=== PATIENT | female | born 1940 | race Hispanic/Latino ===

== ENCOUNTER 2019-06-01 11:00 | Observation (INO) | payer OTHER ==
[~2019-06-01] VITALS: Ht 147.3 cm; Wt 66.7 kg
[~2019-06-01 11:00] MED LIST: ACET325T51 PO; ANAS1TAB7 PO; CALC-991 PO; DESO15CR29 TP; HYDR-3830 PO; LEVO5TAB13 PO; MULT-950 PO; NYST15CR2 TP; SIMV-43 PO
[2019-06-01 13:33] LABS: BASOPHILS % (AUTO) 0.5 % (0.0-5.0); HEMATOCRIT 39.5 % (36-48); LYMPHOCYTES % (AUTO) 26.1 % (21.0-51.0); MEAN CORPUSCULAR HEMOGLOBIN 30.5 pg (27.0-33.0); MEAN CORPUSCULAR HGB CONC 33.1 g/dL (32.0-36.0); MEAN CORPUSCULAR VOLUME 92.2 fL (79-99); NEUTROPHILS % (AUTO) 65.4 % (40.0-77.0); NUCLEATED RED BLOOD CELLS 0.1 % (0.0-0.19); PLATELET COUNT (AUTO) 129 K/uL (130-400); RED BLOOD CELL COUNT(AUTO) 4.28 MIL/uL (4.00-5.50); RED CELL DISTRIBUTION WIDTH 14.2 % (11.0-15.5); WHITE BLOOD COUNT (AUTO) 5.8 K/uL (4.8-10.8)
[2019-06-01 13:46] VITALS: BP 129/60
[2019-06-01 13:48] LABS: CREATININE 0.9 mg/dL (0.5-1.5); POTASSIUM 4.4 mmol/L (3.5-5.1)
--- NOTE | 2019-06-05 11:26 | NUR ---
LABS INFORMED DR. CAMPOS MUÑOZ ASST OF ABNORMAL SODIUM. ORDERS RECEIVED TO REDRAW IN AM.
[2019-06-06] VITALS (25 sets, daily range): BP systolic 116–201; BP diastolic 56–89
[2019-06-06] MEDS: CLINDAMYCIN 900 MG/D5% WATER 50 ML IV SCH ×5 (06:00→19:56)
[2019-06-06] MEDS ORDERED: SODIUM CHLORIDE 0.9% 1000ML 1,000 ML IV ONE (06:52)
[2019-06-06] MEDS ORDERED: SUCCINYLCHOLINE 200MG/10ML SYR ONE (06:53)
[2019-06-06] MEDS ORDERED: LIDOCAINE PF 2% 5ML ABBOJECT ONE (06:53)
[2019-06-06] MEDS ORDERED: PROPOFOL 10 MG/ML 20ML VIAL IV ONE (06:53)
[2019-06-06] MEDS ORDERED: ROCURONIUM 10MG/1ML SYR 10 MG/ML ML ONE (06:53)
[2019-06-06] MEDS ORDERED: FENTANYL CITRATE PF 50 MCG/1 ML 2ML VIAL ONE (06:54)
[2019-06-06] MEDS ORDERED: BACITRACIN 50,000 UNIT VIAL ONE (06:58)
[2019-06-06] MEDS ORDERED: DURAMORPH PF1 MG/ML 10ML AMP IV ONE (06:58)
[2019-06-06 07:04] LABS: CREATININE 0.8 mg/dL (0.5-1.5); POTASSIUM 3.5 mmol/L (3.5-5.1)
[2019-06-06] MEDS ORDERED: MIDAZOLAM HCL 1 MG/ML 2ML VIAL ONE (07:12)
[2019-06-06] MEDS: BUPIVACAINE/EPI/PF 0.25% 30ML VIAL IJ SCH ×2 (07:15→07:57)
[2019-06-06] MEDS ORDERED: RAMI2.5C16 PO (08:06)
[2019-06-06] MEDS ORDERED: GABA-531 PO (08:07)
[2019-06-06] MEDS ORDERED: NAPR-1141 PO (08:09)
[2019-06-06] MEDS ORDERED: CHLO15MO3 MM (08:17)
[2019-06-06] MEDS ORDERED: KETOROLAC TROMETHAMINE 30MG/ML ONE (09:08)
[2019-06-06] MEDS ORDERED: GLYCOPYRROLATE 1 MG/5 ML SYRINGE ONE (09:08)
[2019-06-06] MEDS ORDERED: NEOSTIGMINE 5MG/5ML SYR IV ONE (09:08)
[2019-06-06] MEDS ORDERED: ONDANSETRON HCL 4 MG/2 ML VIAL ONE (09:08)
[2019-06-06] MEDS ORDERED: DEXAMETHASONE SOD PHOSPHATE 10MG/ML 1ML VIAL ONE (09:09)
[2019-06-06] MEDS: LACTATED RINGERS 1000ML 1,000 ML IV SCH ×2 (09:28→19:59)
[2019-06-06] MEDS: DEXAMETHASONE SOD PHOSPHATE 4 MG/ML 1ML VIAL IVP SCH ×3 (09:30→22:02)
[2019-06-06] MEDS ORDERED: HYDROCODONE/ACETAMINOPHEN 5/325 MG TAB PO PRN (09:30)
[2019-06-06] MEDS ORDERED: SODIUM CHLORIDE 0.9% 10 ML VIAL IVP PRN (09:30)
[2019-06-06] MEDS ORDERED: MORPHINE SULFATE 2 MG/ML 1ML SYG IVP PRN (09:30)
[2019-06-06] MEDS ORDERED: CHLORHEXIDINE GLUCONATE 473 ML MOUTHWASH MM SCH (09:30)
[2019-06-06] MEDS ORDERED: PROMETHAZINE HCL 25 MG/ML 1ML AMPULE IM PRN (09:30)
[2019-06-06] MEDS ORDERED: ESMOLOL HCL 10 MG/ML 10 ML VIAL ONE (09:31)
[2019-06-06] MEDS ORDERED: LABETALOL HCL 5 MG/ML 20ML VIAL IV ONE (09:45)
[2019-06-06] MEDS ORDERED: MEPERIDINE-PF 25 MG/ML SYG ONE (10:19)
[2019-06-06] MEDS: GABAPENTIN 300 MG CAPSULE PO SCH (19:56)
[2019-06-06] MEDS ORDERED: NAPROXEN 250 MG TAB PO PRN (21:00)
[2019-06-06] MEDS ORDERED: SIMVASTATIN 20 MG TABLET PO SCH (21:00)
--- NOTE | 2019-06-06 21:45 | NUR ---
AMBULATING PT AMBULATING IN THE HALLWAY WITH ASSISTANCE OF WALKER. NO C/O PAIN OR DISCOMFORT, STEADY GAIT OBSERVED.
--- NOTE | 2019-06-06 22:30 | NUR ---
AMBULATING PT AMBULATING IN THE HALLWAY WITH ASSISTANCE OF WALKER. NO C/O PAIN OR DISCOMFORT, STEADY GAIT OBSERVED.
[2019-06-07] VITALS: BP 125/54
[2019-06-07] MEDS: DEXAMETHASONE SOD PHOSPHATE 4 MG/ML 1ML VIAL IVP SCH ×2 (03:42→09:30)
[2019-06-07] MEDS: BUPIVACAINE/EPI/PF 0.25% 30ML VIAL IJ SCH (03:42)
[2019-06-07 04:00] VITALS: BP 119/51
--- NOTE | 2019-06-07 06:10 | NUR ---
PT STATUS GALLO CATHETER DISCONTINUED THIS MORNING PER MD ORDER (AT 05:50). PT AMBULATED TO BATHROOM WITH HAND HELD ASSISTANCE, AND THEN CONTINUED TO AMBULATE IN THE HALLWAY WITH ASSISTANCE OF WALKER. NO C/O PAIN OR DISCOMFORT, STEADY GAIT OBSERVED. PT DUE TO VOID, WAS INSTRUCTED TO NOTIFY STAFF WHEN ASSISTANCE WAS NEEDED TO AMBULATE TO THE BATHROOM TO PREVENT FALLS. SITTING UP IN THE CHAIR, CALL [facility]ON[facility] WITHIN REACH.
[2019-06-07] MEDS: GABAPENTIN 300 MG CAPSULE PO SCH (07:47)
[2019-06-07 07:49] VITALS: BP 114/57
[2019-06-07] MEDS ORDERED: LISINOPRIL 10 MG TABLET PO SCH (09:00)
== END 2019-06-07 11:27 | disposition home or self-care (01) ==
LOC: EDSTATUS 11:00 → DAHIP 06-06 05:50 → 4AH 06-06 10:25
PROVIDERS: ADMIT Neurological Surgery; ATTEND Neurological Surgery
DX: M48.061 Spinal stenosis, lumbar region without neurogenic claudication (principal); Z90.10 Acquired absence of unspecified breast and nipple; Z88.0 Allergy status to penicillin; Z79.899 Other long term (current) drug therapy
CPT/HCPCS: 36415 ×2; 63047; 63048; 72020; 80048 ×2; 82948; 85025; 96365; 96375; 96376 ×2; A4215; A4221; A4222; A4223; A4344; A4510; A4600; A4649 ×3; A4663; A6260; G0378 ×26; J0330; J1100 ×5; J1885; J2001; J2175; J2250; J2274; J2405; J2704; J2710; J3010; J3490 ×7; J7030 ×2